=== PATIENT | female | born 1990 | race Caucasian/White ===

== ENCOUNTER 2017-09-09 13:16 | Emergency (ER) | payer MEDICAID ==
[~2017-09-09] VITALS: Ht 160 cm; Wt 61.0 kg
[~2017-09-09 13:16] MED LIST: CYMB30CA PO; DEPA125T PO; FLUT1SPR5 EACH NARE; IBUP1TAB7 PO; LURA20TA PO; VIST25CA PO
[2017-09-09 13:20] VITALS: PULSE 86; RESP 16; TEMP 98; O2SAT 98
[2017-09-09] MEDS ORDERED: VIST25CA PO (14:29)
--- NOTE | 2017-09-09 14:29 | PD ---
HPI Chief Complaint: Skin Problem Time Seen by Provider: 13:54 Travel History International Travel<30 days: No Contact w/Intl Traveler<30days: No Traveled to known affect area: No History of Present Illness HPI 27 year old female with complaint of pruritus. She reports she previously had a rash was treated with prednisone and steroid cream. The rash is resolved but she continues to itch. There is no rash currently. No fever chills. She has not attempted any Benadryl for symptoms. She reports she cannot sleep at night due to the itching. Symptom severity is mild to moderate. PFSH Past Medical History Arthritis: No Bipolar Disorder: Yes Anxiety: Yes Depression: Yes Cancer: No Cardiovascular Problems: No COPD: No Diabetes: No Diminished Hearing: No Gastrointestinal Disorders: No Headaches: No Hypertension: No Psychiatric: Yes Immunizations Current: No (PT NOT ENROLLED IN PUBLIC SCHOOL AND DOES NOT KNOW STATUS) Seizures: No Tetanus Vaccination: < 5 Years Influenza Vaccination: No ?: Not LMP: 2 WEEKS : 1 Para: 1 Miscarriage: 1 : 0 Past Surgical History Section: Yes Gynecologic Surgery: Yes () Other Surgery: No Social History Alcohol Use: Yes Tobacco Use: No Substance Use: Yes (marijuana) Allergies-Medications (Allergen,Severity, Reaction): Coded Allergies: codeine (Unverified Allergy, Severe, ITCH AND VOMITING, 09/09/17) Reported Meds & Prescriptions Reported Meds & Active Scripts Active Vistaril (Hydroxyzine Pamoate) 25 Mg Cap 25 Mg PO Q6H PRN 5 Days Ibuprofen 800 Mg Tab 800 Mg PO Q8H PRN Flonase Nasal [place] (Fluticasone Nasal [place]) 50 Mcg/Act [place] 50 Mcg EACH NARE BID Reported Vistaril (Hydroxyzine Pamoate) 25 Mg Cap 25 Mg PO BID Depakote DR (Divalproex Sodium) 125 Mg Tabdr 100 Mg PO BID Latuda (Lurasidone) 20 Mg Tab 20 Mg PO DAILY Cymbalta DR (Duloxetine HCl) 30 Mg Capdr 30 Mg PO DAILY Review of Systems Except as stated in HPI: all other systems reviewed are Neg General / Constitutional: No: Fever Skin: Positive Itching Physical Exam Narrative GENERAL: Alert and well-appearing 27-year-old female. Patient itching throughout the exam SKIN: Warm and dry. No rash HEAD: Normocephalic. EYES: No scleral icterus. No injection or drainage. NECK: Supple, trachea midline. No JVD or lymphadenopathy. CARDIOVASCULAR: Regular rate and rhythm without murmurs, gallops, or rubs. RESPIRATORY: Breath sounds equal bilaterally. No accessory muscle use. GASTROINTESTINAL: Abdomen soft, non-tender, nondistended. MUSCULOSKELETAL: No cyanosis, or edema. BACK: Nontender without obvious deformity. No CVA tenderness. Data Data Last Documented VS Vital Signs Date Time Temp Pulse Resp B/P (MAP) Pulse Ox O2 Delivery O2 Flow Rate FiO2 09/09/17 13:20 98.0 86 16 98 MDM Medical Decision Making Medical Screen Exam Complete: Yes Emergency Medical Condition: Yes Differential Diagnosis Pruritus, dry skin, unspecified rash Narrative Course 27 year old female with complaint of pruritus. She reports she previously had a rash was treated with prednisone and steroid cream. The rash is resolved but she continues to itch. There is no rash currently. Patient is visibly itching during my exam. She is well-appearing. She will be discharged home with Vistaril. Diagnosis Primary Impression: Pruritus Referrals: Primary Care Physician Scripts Hydroxyzine Pamoate (Vistaril) 25 Mg Cap 25 MG PO Q6H Y for ITCHING for 5 Days, #20 CAP 0 Refills Prov: Thi Castanon 09/09/17 Disposition: 01 DISCHARGE HOME Condition: Stable Thi Castanon Sep 09, 2017 14:29
== END 2017-09-09 14:42 | disposition home or self-care (01) ==
LOC: PHEFT 13:16
DX: L29.9 Pruritus, unspecified (principal); F31.9 Bipolar disorder, unspecified; F41.9 Anxiety disorder, unspecified; F12.90 Cannabis use, unspecified, uncomplicated
CPT/HCPCS: 99283